=== PATIENT | female | born 1985 | race Caucasian/White ===

== ENCOUNTER 2018-05-30 05:07 | Emergency (ER) | payer MEDICAID ==
[2018-05-30 05:07] VITALS: BMI 44.2
[2018-05-30 05:23] VITALS: BP 126/79; PULSE 82; RESP 18; TEMP 98.1; O2SAT 98
--- NOTE | 2018-05-30 05:53 | C.PDOC ---
History Of Present Illness Pt is 8 months EDC 07/13 BIBEMSwith c/o of right upper dental pain. Pt states pain has been intermittent 2 weeks and is waiting for OB clearance to see her dentist. Pt states pain increased tonight and woke her from sleep, radiating to right ear and right facial area. Pt has not taken any OTC meds due to her . Denies fever, headache, dizziness, head or facial trauma, no abd pain Time Seen by Provider: 05/30/18 05:28 Chief Complaint (Nursing): Dental Pain History Per: Patient History/Exam Limitations: no limitations Severity: Moderate Quality: Positive for: Aching, "Pain" Past Medical History Vital Signs: Last Vital Signs Temp 98.1 F 05/30/18 05:14 Pulse 82 05/30/18 05:14 Resp 18 05/30/18 05:14 BP 126/79 05/30/18 05:14 Pulse Ox 98 05/30/18 05:14 - Medical History PMH: No Chronic Diseases Denies: Chronic Kidney Disease - [facility] Procedures MONITORING NOS (04/18/15) LOW CERVICAL (04/18/15) Family History: States: Unknown Family Hx - Social History Hx Alcohol Use: No Hx Substance Use: No - Immunization History Hx Tetanus Toxoid Vaccination: No Hx Influenza Vaccination: No Hx Pneumococcal Vaccination: No Review Of Systems Constitutional: Negative for: Fever ENT: Positive for: Ear Pain (right), Mouth Pain (right toothache) Cardiovascular: Negative for: Chest Pain Respiratory: Negative for: Shortness of Breath Gastrointestinal: Negative for: Abdominal Pain Neurological: Negative for: Headache, Dizziness Physical Exam - Physical Exam Appears: Well, Non-toxic, In Acute Distress (pain) Skin: Normal Color Eye(s): bilateral: Normal Inspection Ear(s): Right: TM Obscured By Wax Oral Mucosa: Moist, No Drooling Tongue: Normal Appearing Teeth: Caries (capped premolar to right lower gum with tendernss, no swelling, erythema), Tender To Palpation (right lower posterior molar area) Gingiva: No Erythema, No Swelling, Tender (right lower molar), No Abscess Throat: Normal, No Erythema Neck: Normal Lymphatic: Normal Exam Cardiovascular: Rhythm Regular Respiratory: Normal Breath Sounds Gastrointestinal/Abdominal: Normal Exam, No Tenderness, Other (gravid, ) Extremity: Normal ROM Neurological/Psych: Oriented x3, Normal Speech ED Course And Treatment O2 Sat by Pulse Oximetry: 98 Pulse Ox Interpretation: Normal Progress Note: Tylenol PO and viscous lidocaine swish and spit. Pt reports pain improvement, VSS in ED. Pt will be d/c and referred to her OB for further pain management Reevaluation Time: 06:12 Reassessment Condition: Improved Disposition - Disposition Referrals: Your OB/ [employer], Private [Other] Your dentist, Dental office [Other] Disposition: HOME/ ROUTINE Disposition Time: 06:12 Condition: STABLE Additional Instructions: Take tylenol as directed for pain Avoid very cold or very hot drinks Follow up with dentist as scheduled Return to ER if worse Prescriptions: Acetaminophen [Tylenol] 975 mg PO Q4 #20 capsule Instructions: Dental Pain (DC) - Clinical Impression Clinical Impression: Pain, dental
== END 2018-05-30 06:27 | disposition home or self-care (01) ==
LOC: C.ER 05:07
DX: K08.89 Other specified disorders of teeth and supporting structures (principal)